=== PATIENT | male | born 1945 | race Caucasian/White ===

== ENCOUNTER 2019-07-27 17:46 | Emergency (ER) | payer OTHER, MEDICARE ==
--- NOTE | 2019-07-27 18:57 | XRAY Report ---
Reason: deformity, pain Procedure Date: 07/27/2019 Accession Number: [id number] / [id number] Procedure: XR - Forearm RT CPT Code: FULL RESULT: EXAM: RIGHT FOREARM RADIOGRAPHY EXAM DATE: 07/27/2019 06:30 PM. CLINICAL HISTORY: Deformity, pain. Elderly ground-level fall; right arm impact with stone. COMPARISON: None. TECHNIQUE: 2 views. FINDINGS: Bones: Acute right distal radial and ulnar diaphyseal fractures with mild to moderate ulnar dorsal angulation. Severe volar displacement of the distal radial fracture fragment with moderate dorsal angulation along with mild radial displacement. Mild volar displacement and moderate ulnar displacement of the distal ulnar fracture fragment. Adjacent soft tissue swelling. Joints: No dislocation. IMPRESSION: Acute right distal radial and ulnar diaphyseal fractures. See above. RADIA
[2019-07-27] MEDS ORDERED: oxyCODONE 5 MG TABLET PO STA (19:00)
--- NOTE | 2019-07-27 19:01 | ED Physician Documentation ---
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 Despite taking oxycodone at home. This happened today around 4:00.) Review of Systems Constitutional: reports: Reviewed and negative Throat: reports: Reviewed and negative Cardiac: reports: Reviewed and negative PD PAST MEDICAL HISTORY - Past Medical History Past Medical History: Yes Cardiovascular: Arrhythmia Respiratory: None Endocrine/Autoimmune: None GI: Hiatal hernia : Incontinence HEENT: Chronic vision loss, Other Psych: None Musculoskeletal: None Derm: None - Past Surgical History Past Surgical History: Yes General: Colonoscopy, EGD Ortho: Other HEENT: Cataracts, Other - Allergies Allergies/Adverse Reactions: Allergies Allergy/AdvReac Type Severity Reaction Status Date / Time No Known Drug Allergies Allergy Verified 12/20/15 14:52 - Social History Does the pt smoke?: No Smoking Status: Never smoker Does the pt drink ETOH?: No Does the pt have substance abuse?: No - Immunizations Immunizations are current?: Yes - POLST Patient has POLST: No PD ED PE NORMAL - Vitals Vital signs reviewed: Yes - General General: Alert and oriented X 3, No acute distress - HEENT HEENT: PERRL - Neck Neck: Supple, no meningeal sign, No bony TTP - Extremities Extremities: Other (Mild deformity of the distal forearm, unable to range the wrist. Normal neurovascular function in the hand.) - Neuro Neuro: Alert and oriented X 3, Normal speech Results - Vitals Vitals: Vital Signs - 24 hr 07/27/19 07/27/19 18:11 19:54 Temperature 36.2 C L 36.4 C L Heart Rate 64 81 Respiratory 18 16 Rate Blood Pressure 148/73 H 158/95 H O2 Saturation 95 95 Oxygen O2 Source Room air - Rads (name of study) R forearm Radiology: EMP read contemporaneously (Angulated both bone forearm fracture) Procedures - Splint (location) RUE Splint applied by: Tech Type of splint: Fiberglass, Long arm, Sugar tong Other: Patient tolerated well, No complications, Neurovascular intact, Sling provided PD MEDICAL DECISION MAKING - ED course ED course: Spoke with Garrick Maya, the on-call orthopedic surgeon. Agrees that the patient will probably need operative fixation but noted that the patient has [employer] insurance. They were called to either authorize surgery here or arrange for transfer or expedited follow-up at around 7:05 PM. I spoke with the [facility] doctor, Dr. Derik ibarra and he arranged for the patient To be seen at their orthopedic clinic tomorrow morning at 930 with potential direct admission for surgery after that. Departure - Departure Disposition: 01 Home, Self Care Clinical Impression: Right forearm fracture Condition: Good Record reviewed to determine appropriate education?: Yes Comments: With [employer] we have arranged for you to go to their orthopedic clinic in [place] tomorrow[place] [id number] [place] [facility] [facility] in [place]. Your appointment is at 9:30 AM. Please do not eat or drink after midnight. Discharge Date/Time: 07/27/19 20:32
[2019-07-27 19:55] VITALS: BP 158/95
== END 2019-07-27 20:32 | disposition home or self-care (01) ==
LOC: ED 17:46
DX: S52.591A Other fractures of lower end of right radius, initial encounter for closed fracture (principal); S52.691A Other fracture of lower end of right ulna, initial encounter for closed fracture; W01.198A Fall on same level from slipping, tripping and stumbling with subsequent striking against other object, initial encounter
CPT/HCPCS: 29105; 73090; 99282; 99283; A9270

== ENCOUNTER 2023-06-25 08:18 | Outpatient (CLI) | payer OTHER, MEDICARE ==
[2023-06-25 11:41] LABS: BASOPHILS % (AUTO) 0.5 %; EOSINOPHILS # (AUTO) 0.7 10^3/uL (0.0-0.7); HCT - HEMATOCRIT 50.8 % (42.0-52.0); HGB - HEMOGLOBIN 16.7 g/dL (14.0-18.0); LYMPHOCYTES # (AUTO) 2.1 10^3/uL (1.5-3.5); LYMPHOCYTES % (AUTO) 33.3 %; MEAN CORPUSCULAR HEMOGLOBIN 30.2 pg (27.0-31.0); MEAN CORPUSCULAR HGB CONC 32.9 g/dL (32.0-36.0); MEAN CORPUSCULAR VOLUME 91.9 fL (80.0-94.0); MEAN PLATELET VOLUME 9.9 fL (7.4-11.4); MONOCYTES # (AUTO) 0.6 10^3/uL (0.0-1.0); MONOCYTES % (AUTO) 9.1 %; NEUTROPHILS # (AUTO) 2.9 10^3/uL (1.5-6.6); NEUTROPHILS % (AUTO) 45.8 %; PLT - PLATELET COUNT 288 10^3/uL (130-450); RED BLOOD COUNT 5.53 10^6/uL (4.70-6.10); RED CELL DISTRIBUTION WIDTH 14.3 % (12.0-15.0); WHITE BLOOD COUNT 6.4 x10^3/uL (4.8-10.8)
[2023-06-25 12:48] LABS: ALBUMIN 4.4 g/dL (3.2-5.5); ALBUMIN/GLOBULIN RATIO 1.5 (1.0-2.2); ALKALINE PHOSPHATASE 58 IU/L (42-121); ALT ALANINE AMINOTRANSFERASE 19 IU/L (10-60); AST ASPARTATE AMINOTRANSFERASE 21 IU/L (10-42); BILIRUBIN,TOTAL 0.8 mg/dL (0.2-1.0); BUN - BLOOD UREA NITROGEN 15 mg/dL (6-20); CALCIUM 9.6 mg/dL (8.5-10.3); CARBON DIOXIDE - CO2 27 mmol/L (21-32); CHLORIDE 105 mmol/L (101-111); CHOL/HDL RATIO 3.9 (<5.0); CHOLESTEROL 190 mg/dL; CREATININE 1.2 mg/dL (0.6-1.3); GFR - MDRD 59 (>89); GLUCOSE 95 mg/dL (74-104); HDL CHOLESTEROL 49 mg/dL; LDL CHOLESTEROL,CALCULATED 114 mg/dL; LDL/HDL RATIO 2.3 (<3.6); POTASSIUM 4.2 mmol/L (3.5-4.5); SODIUM 137 mmol/L (135-145); TOTAL PROTEIN 7.4 g/dL (6.4-8.9); TRIGLYCERIDES 133 mg/dL (48-352); VLDL CHOLESTEROL 27 mg/dL
[2023-06-25 12:58] LABS: THYROID STIMULATING HORMONE 1.35 uIU/mL (0.34-5.60)
== END 2023-06-25 08:19 | disposition home or self-care (01) ==
LOC: LAB.N 08:18
PROVIDERS: ATTEND Physician Assistant
DX: R00.1 Bradycardia, unspecified (principal); Z13.220 Encounter for screening for lipoid disorders; R79.89 Other specified abnormal findings of blood chemistry
CPT/HCPCS: 36415; 80053; 80061; 82607; 83721; 84443; 85025

== ENCOUNTER 2023-09-27 09:24 | Outpatient (CLI) | payer MEDICARE ==
[~2023-09-27 09:24] MED LIST: GADOTERATE MEGLUMINE 10 MMOL/20 ML VIAL ONE
[2023-09-27 10:06] LABS: CREATININE 1.1 mg/dL (0.6-1.3)
[2023-09-27] MEDS ORDERED: GADOTERATE MEGLUMINE 10 MMOL/20 ML VIAL IVP ONE (11:13)
--- NOTE | 2023-09-29 13:21 | MRI Report ---
PROCEDURE: ABDOMEN W/WO INDICATIONS: LIVER LESION, KIDNEY LESION CONTRAST: CLARISCAN 16.4 ML TECHNIQUE: Coronal ultra fast SE, axial 2D spoiled GE in- and [id number]; axial breath-hold T2 fast SE. Dynam ic axial ultra fast GE during the administration of contrast; post-contrast coronal ultra fast GE or 2D spoiled GE with fat saturation from the hepatic dome to the iliac crests. Optional diffusion weig hted imaging and ADC may be performed. COMPARISON: None. FINDINGS: Image quality: Excellent. Lung bases and heart: Unremarkable. Liver: No solid mass. A few small T2 hyperintense cysts. Gallbladder and biliary tree: Surgically absent. No biliary dilation, accounting for post-cholecystec nj state. Spleen: No splenomegaly. Pancreas: No pancreatic ductal dilation. Adrenals: No convincing adrenal nodule. Kidneys and ureters: No hydronephrosis. No renal cystic lesion which requires follow up. Several shay gn T2 hyperintense cyst. The largest on the left measures 4.8 cm. Right kidney inferior pole exophyti c cyst measuring 1.6 cm with layering debris. No enhancement. No solid mass. Irregular enhancing nodule adjacent to the right kidney measuring 1.2 cm, (). The abnormality ap pears to be along anterior Gerota's fascia. There may be adjacent scarring in the right kidney seen o n the coronal images, (). Bowel and peritoneum: No bowel distension. No pathologic free fluid. Normal appendix. Lymph nodes: No central or retroperitoneal adenopathy. Vessels: No infrarenal aortic aneurysm. Left retroaortic renal vein. Bones: No aggressive osseous abnormality. Mild scoliosis. Other: No significant ventral hernia. IMPRESSION: 1. Irregular enhancing nodule adjacent to the right kidney measuring 1.2 cm. Recommend comparison wit h prior imaging if available. It is possible this could represent an area of scarring. However, recur rent or metastatic disease could have this appearance. Short-term follow-up renal protocol CT in 3-6 months would be helpful. 2. Right kidney inferior pole exophytic minimally complex cyst measuring 1.6 cm with layering debris. 3. No suspicious or enhancing hepatic lesion. 4. No enlarged lymph nodes. Reviewed by: Celestine Bruner MD on 09/29/2023 1:19 PM PST Approved by: Celestine Bruner MD on 09/29/2023 1:19 PM PST Station ID: [id number]
== END 2023-09-27 09:25 | disposition home or self-care (01) ==
LOC: LAB 09:24
PROVIDERS: ATTEND Physician Assistant
DX: K76.9 Liver disease, unspecified (principal); N28.9 Disorder of kidney and ureter, unspecified; N28.1 Cyst of kidney, acquired
CPT/HCPCS: 36415; 74183; 82565; A9575

== ENCOUNTER 2023-10-07 15:32 | Outpatient (CLI) | payer MEDICARE | END 2023-10-07 15:33 | disposition home or self-care (01) | LOC: DI 15:32 | PROVIDERS: ATTEND Physician Assistant | DX: R06.09 Other forms of dyspnea (principal); R00.1 Bradycardia, unspecified; R00.8 Other abnormalities of heart beat | CPT/HCPCS: 93306 ==